=== PATIENT | female | born 1965 | race Caucasian/White ===

== ENCOUNTER 2022-12-04 16:47 | Emergency (ER) | payer OTHER ==
[2022-12-04 16:53] VITALS: TEMP 98.7
--- NOTE | 2022-12-04 17:14 | ED ---
General Adult HPI - General Chief complaint: Upper Respiratory Infection Stated complaint: Coughing Blood Time Seen by Provider: 12/04/22 17:00 Source: patient Mode of arrival: ambulatory Limitations: language barrier - History of Present Illness Initial comments: This is a 57-year-old female with a past medical history including atrial fibrillation and rheumatoid arthritis presents emergency department from urgent care for increasing soreness of breath, cough as well as blood-streaked sputum. It was reported that the patient was in [place] for 3 weeks but over the last 1 week started to experience symptoms including cough and chest tightness. The patient stated that she has had severe coughing episodes over the last 1 week and is now having blood-tinged sputum after these coughing episodes. The patient herself had congestion and subjective fevers without any chills. The patient was seen in urgent care and had a reported abnormal chest x-ray so she was sent into the emergency department for further evaluation. On evaluation, the patient was resting in bed comfortably. The patient denied any other acute pain or distress. - Related Data Home Medications Medication Instructions Recorded Confirmed Aspirin EC [Ecotrin Low Dose] 81 mg PO DAILY 12/04/22 12/04/22 Sotalol [Betapace] 80 mg PO BID 12/04/22 12/04/22 metHOTREXate sodium [Methotrexate] 12.5 mg PO MO 12/04/22 12/04/22 Previous Rx's Medication Instructions Recorded Azithromycin [Zithromax Z Pack] 1 tab PO DIRECTED #6 tab 12/04/22 Allergies Allergy/AdvReac Type Severity Reaction Status Date / Time No Known Allergies Allergy Verified 12/04/22 18:54 Review of Systems ROS Statement: Those systems with pertinent positive or pertinent negative responses have been documented in the HPI. ROS Other: All systems not noted in ROS Statement are negative. Past Medical History Past Medical History: Atrial Fibrillation, Rheumatoid Arthritis (RA) Additional Past Medical History / Comment(s): bronchiectasis History of Any Multi-Drug Resistant Organisms: None Reported Past Surgical History: Section Past Psychological History: No Psychological Hx Reported Smoking Status: Never smoker Past Alcohol Use History: Rare Past Drug Use History: None Reported General Exam Limitations: no limitations General appearance: alert, in no apparent distress Head exam: Present: atraumatic, normocephalic Eye exam: Present: normal appearance, PERRL Pupils: Present: normal accommodation ENT exam: Present: normal exam, normal oropharynx, mucous membranes moist Neck exam: Present: normal inspection, full ROM Respiratory exam: Present: normal lung sounds bilaterally Cardiovascular Exam: Present: regular rate, normal rhythm, normal heart sounds GI/Abdominal exam: Present: soft, normal bowel sounds Extremities exam: Present: normal inspection, full ROM Back exam: Present: normal inspection, full ROM Neurological exam: Present: alert, oriented X3, CN II-XII intact Psychiatric exam: Present: normal affect, normal mood Skin exam: Present: warm, dry Course Vital Signs 12/04/22 12/04/22 12/04/22 16:48 17:00 19:23 Temperature 98.7 F Pulse Rate 94 80 Respiratory 20 20 16 Rate Blood Pressure 145/88 124/82 O2 Sat by Pulse 93 L 98 Oximetry EKG Findings - EKG Comments: EKG Findings:: In EKG was obtained and was interpreted by myself showing a rate of 84, NV interval 135, QS duration of 82 and QTC of 414. This EKG showed a normal sinus rhythm with an occasional PVC. This EKG showed no ST segment elevation or depression noted. Medical Decision Making - Medical Decision Making Was pt. sent in by a medical professional or institution (, PA, GYMNASTICS INSTRUCTOR, urgent care, hospital, or jail...) When possible be specific @ -No Did you speak to anyone other than the patient for history (EMS, parent, family, police, friend...)? What history was obtained from this source @ -Yes, patient's daughter who did help with the leg which barrier. She stated that the patient has had increasing chest pressure with the cough. Did you review nursing and triage notes (agree or disagree)? Why? @ -I reviewed and agree with nursing and triage notes Were old charts reviewed (outside hosp., previous admission, EMS record, old EKG, old radiological studies, urgent care reports/EKG's, jail records)? Report findings @ -No old charts were reviewed Differential Diagnosis (chest pain, altered mental status, abdominal pain women, abdominal pain men, vaginal bleeding, weakness, fever, dyspnea, syncope, headache, dizziness, GI bleed, back pain, seizure, CVA, palpatations, mental health)? @ -Pneumonia, pneumothorax, PE EKG interpreted by me (3pts min.). @ -As above X-rays interpreted by me (1pt min.). @ -Chest x-ray was obtained and was interpreted by myself showing bilateral infrahilar infiltrates. CT interpreted by me (1pt min.). @ -CTA of the chest was obtained and was interpreted by myself showing no evidence for pulmonary embolus and. There was perihilar densities which may reflect atelectasis or developing infiltrate. There was additional reticular nodular densities in the right upper lobe that may reflect atypical pneumonia. Radiologist did recommend discrete pulmonary nodule follow-up in 3-6 months. U/S interpreted by me (1pt. min.). @ -None done What testing was considered but not performed or refused? (CT, X-rays, U/S, labs)? Why? @ -None What meds were considered but not given or refused? Why? @ -None Did you discuss the management of the patient with other professionals (professionals i.e. , PA, GYMNASTICS INSTRUCTOR, lab, RT, psych nurse, clinical social work therapist, reconciliation analyst, teacher, antisubmarine weapons officer, piano case maker)? Give summary @ -No Was smoking cessation discussed for >3mins.? @ -No Was critical care preformed (if so, how long)? @ -No Were there social determinants of health that impacted care today? How? (Homelessness, low income, unemployed, alcoholism, drug addiction, transportation, low edu. Level, literacy, decrease access to med. care, chcf, re hab)? @ -No Was there de-escalation of care discussed even if they declined (Discuss DNR or withdrawal of care, Hospice)? DNR status @ -No What co-morbidities impacted this encounter? (DM, HTN, Smoking, COPD, CAD, Cancer, CVA, ARF, Chemo, Hep., AIDS, mental health diagnosis, sleep apnea, morbid obesity)? @ -Atrial fibrillation Was patient admitted / discharged? Hospital course, mention meds given and route, prescriptions, significant lab abnormalities, going to OR and other pertinent info. @ -The patient was seen and evaluated emergency department. Physical exam, the patient was resting in bed without any acute distress. Vital signs admission were stable. Laboratory workup was obtained and was within normal limits but imaging did show signs for pneumonia. Due to the patient's coughing and likely blood-tinged sputum from forceful coughing, the patient will be treated for community acquired pneumonia. The patient was given a prescription for azithro mycin but was given a single dose of Decadron here in the emergency department. The patient and her daughter were advised report back to the emergency department if she had worsening shortness of breath or chest pain. They're also advised to follow-up with the primary care physician for further workup and evaluation. The patient was agreeable to this as was her daughter. The patient was discharged home in stable condition. Undiagnosed new problem with uncertain prognosis? @ -No Drug Therapy requiring intensive monitoring for toxicity (Heparin, Nitro, Insulin, Cardizem)? @ -No Were any procedures done? @ -No Diagnosis/symptom? @ -Community acquired pneumonia Acute, or Chronic, or Acute on Chronic? @ -Acute Uncomplicated (without systemic symptoms) or Complicated (systemic symptoms)? @ -Uncomplicated Side effects of treatment? @ -No Exacerbation, Progression, or Severe Exacerbation? @ -No Poses a threat to life or bodily function? How? (Chest pain, USA, VT, pneumonia, PE, COPD, DKA, ARF, appy, cholecystitis, CVA, Diverticulitis, Homicidal, Suicidal, threat to staff... and all critical care pts) @ -No - Lab Data Result diagrams: 12/04/22 17:18 12/04/22 17:18 Lab Results 12/04/22 12/04/22 12/04/22 Range/Units 17:18 17:18 17:18 WBC 7.6 (3.8-10.6) k/uL RBC 4.87 (3.80-5.40) m/uL Hgb 14.0 (11.4-16.0) gm/dL Hct 41.4 (34.0-46.0) % MCV 85.1 (80.0-100.0) fL MCH 28.7 (25.0-35.0) pg MCHC 33.8 (31.0-37.0) g/dL RDW 14.3 (11.5-15.5) % Plt Count 199 (150-450) k/uL MPV 8.3 Neutrophils % 69 % Lymphocytes % 23 % Monocytes % 5 % Eosinophils % 1 % Basophils % 0 % Neutrophils # 5.2 (1.3-7.7) k/uL Lymphocytes # 1.8 (1.0-4.8) k/uL Monocytes # 0.4 (0-1.0) k/uL Eosinophils # 0.1 (0-0.7) k/uL Basophils # 0.0 (0-0.2) k/uL PT 10.7 (9.0-12.0) sec INR 1.0 (<1.2) APTT 24.8 (22.0-30.0) sec D-Dimer 0.66 H (<0.60) mg/L FEU Sodium 137 (137-145) mmol/L Potassium 3.9 (3.5-5.1) mmol/L Chloride 99 (98-107) mmol/L Carbon Dioxide 28 (22-30) mmol/L Anion Gap 10 mmol/L BUN 10 (7-17) mg/dL Creatinine 0.74 (0.52-1.04) mg/dL Est GFR (CKD-EPI)AfAm >90 (>60 ml/min/1.73 sqM) Est GFR (CKD-EPI)NonAf >90 (>60 ml/min/1.73 sqM) Glucose 108 H (74-99) mg/dL Calcium 8.8 (8.4-10.2) mg/dL Magnesium 2.0 (1.6-2.3) mg/dL Total Bilirubin 0.4 (0.2-1.3) mg/dL AST 22 (14-36) U/L ALT 18 (4-34) U/L Alkaline Phosphatase 86 (38-126) U/L Troponin I (0.000-0.034) ng/mL Total Protein 7.8 (6.3-8.2) g/dL Albumin 4.3 (3.5-5.0) g/dL Lipase 42 (23-300) U/L Influenza Type A (PCR) (Not Detectd) Influenza Type B (PCR) (Not Detectd) RSV (PCR) (Not Detectd) SARS-CoV-2 (PCR) (Not Detectd) 12/04/22 12/04/22 Range/Units 17:18 17:18 WBC (3.8-10.6) k/uL RBC (3.80-5.40) m/uL Hgb (11.4-16.0) gm/dL Hct (34.0-46.0) % MCV (80.0-100.0) fL MCH (25.0-35.0) pg MCHC (31.0-37.0) g/dL RDW (11.5-15.5) % Plt Count (150-450) k/uL MPV Neutrophils % % Lymphocytes % % Monocytes % % Eosinophils % % Basophils % % Neutrophils # (1.3-7.7) k/uL Lymphocytes # (1.0-4.8) k/uL Monocytes # (0-1.0) k/uL Eosinophils # (0-0.7) k/uL Basophils # (0-0.2) k/uL PT (9.0-12.0) sec INR (<1.2) APTT (22.0-30.0) sec D-Dimer (<0.60) mg/L FEU Sodium (137-145) mmol/L Potassium (3.5-5.1) mmol/L Chloride (98-107) mmol/L Carbon Dioxide (22-30) mmol/L Anion Gap mmol/L BUN (7-17) mg/dL Creatinine (0.52-1.04) mg/dL Est GFR (CKD-EPI)AfAm (>60 ml/min/1.73 sqM) Est GFR (CKD-EPI)NonAf (>60 ml/min/1.73 sqM) Glucose (74-99) mg/dL Calcium (8.4-10.2) mg/dL Magnesium (1.6-2.3) mg/dL Total Bilirubin (0.2-1.3) mg/dL AST (14-36) U/L ALT (4-34) U/L Alkaline Phosphatase (38-126) U/L Troponin I <0.012 (0.000-0.034) ng/mL Total Protein (6.3-8.2) g/dL Albumin (3.5-5.0) g/dL Lipase (23-300) U/L Influenza Type A (PCR) Not Detected (Not Detectd) Influenza Type B (PCR) Not Detected (Not Detectd) RSV (PCR) Not Detected (Not Detectd) SARS-CoV-2 (PCR) Not Detected (Not Detectd) Disposition Clinical Impression: CAP (community acquired pneumonia) Disposition: HOME SELF-CARE Condition: Stable Instructions (If sedation given, give patient instructions): Community Acquired Pneumonia (DC) Prescriptions: Azithromycin [Zithromax Z Pack] 1 tab PO DIRECTED #6 tab Is patient prescribed a controlled substance at d/c from ED?: No Referrals: Nonstaff,Physician [REFERRING] - 1-2 days Time of Disposition: 19:00
[2022-12-04 17:31] LABS: Basophils % (A) 0 %; Eosinophils # (A) 0.1 k/uL (0-0.7); Eosinophils % (A) 1 %; HCT 41.4 % (34.0-46.0); Lymphocytes # (A) 1.8 k/uL (1.0-4.8); Lymphocytes % (A) 23 %; MCH 28.7 pg (25.0-35.0); MCHC 33.8 g/dL (31.0-37.0); MCV 85.1 fL (80.0-100.0); Mean Platelet Volume 8.3; Monocytes # (A) 0.4 k/uL (0-1.0); Monocytes % (A) 5 %; Neutrophils # (A) 5.2 k/uL (1.3-7.7); Neutrophils % (A) 69 %; Platelet Count 199 k/uL (150-450); RBC 4.87 m/uL (3.80-5.40); RDW 14.3 % (11.5-15.5); WBC 7.6 k/uL (3.8-10.6)
--- NOTE | 2022-12-04 17:48 | XR ---
EXAMINATION TYPE: XR chest 2V DATE OF EXAM: 12/04/2022 COMPARISON: NONE HISTORY: Shortness of breath TECHNIQUE: Frontal and lateral views of the chest are obtained. FINDINGS: Scattered senescent parenchymal changes noted. Hyperinflation compatible with COPD. Bilateral infrahilar infiltrates. Correlate for pneumonia. Heart size is stable. Mediastinal structures are stable and grossly unremarkable. No evidence for hilar prominence. Degenerative changes dorsal spine. IMPRESSION: 1. Bilateral infrahilar infiltrates. Correlate for pneumonia.
[2022-12-04 17:49] LABS: Partial Thromboplastin Time 24.8 sec (22.0-30.0); Prothrombin Time 10.7 sec (9.0-12.0)
[2022-12-04 17:56] LABS: ALT 18 U/L (4-34); AST 22 U/L (14-36); African American GFR (CKD) >90 (>60 ml/min/1.73 sqM); Albumin 4.3 g/dL (3.5-5.0); Alkaline Phosphatase 86 U/L (38-126); Anion Gap 10 mmol/L; Blood Urea Nitrogen 10 mg/dL (7-17); Calcium 8.8 mg/dL (8.4-10.2); Carbon Dioxide 28 mmol/L (22-30); Chloride 99 mmol/L (98-107); Glucose 108 mg/dL (74-99); Lipase 42 U/L (23-300); Non-African American GFR(CKD) >90 (>60 ml/min/1.73 sqM); Potassium 3.9 mmol/L (3.5-5.1); Sodium 137 mmol/L (137-145); Total Bilirubin 0.4 mg/dL (0.2-1.3); Total Protein 7.8 g/dL (6.3-8.2)
--- NOTE | 2022-12-04 19:05 | CT ---
The axilla EXAMINATION TYPE: CT angio chest DATE OF EXAM: 12/04/2022 COMPARISON: None HISTORY: dyspnea CT DLP: 281.9 mGycm CONTRAST: CT chest with contrast and 3D reconstruction with MIP imaging is performed with IV Contrast, patient injected with 100ml mL of Isovue 370. Contrast-enhanced CT of the chest was performed through the course of the pulmonary arteries with coretta g and mediastinal window settings submitted. 3D reconstruction with MIP imaging was also performed. PULMONARY ARTERIES: The pulmonary arteries and their major tributaries are patent. I do not see noris dence for sizable filling defect to suggest pulmonary embolic process. LUNGS: 7 mm pulmonary nodule lateral right mid lung zone image 83 sequence 406. Appropriate follow-up advised. Atelectatic changes are within the medial upper lobes bilaterally. Mild lower lobe bronchie ctasis. Some scattered reticulonodular densities right upper lobe may reflect atypical pneumonia. MEDIASTINUM: Thoracic aorta is of normal caliber,however, evaluation is limited given timing of the contrast bolus. If there is concern for thoracic aortic pathology consider RONDA. Correlate clinicall y . The heart is not enlarged. No evidence for mediastinal mass. No mediastinal lymph nodes greater than 1cm. HILAR STRUCTURES: No evidence for mass. No hilar lymph nodes greater than 1 cm. UPPER ABDOMEN: No significant abnormality is seen. IMPRESSION: 1. No evidence for Pulmonary embolism at this time. 2. Perihilar densities which may reflect atelectasis or developing infiltrate. Additional reticulonod ular densities right upper lobe may reflect atypical pneumonia. More discrete pulmonary nodule requir es follow-up in 3-6 months.
[2022-12-04] MEDS ORDERED: dexAMETHasone 2 MG TAB PO STA (19:19)
[2022-12-04 19:24] VITALS: BP 124/82; PULSE 80; RESP 16
== END 2022-12-04 19:33 | disposition home or self-care (01) ==
LOC: EC 16:47
DX: J18.9 Pneumonia, unspecified organism (principal); I48.91 Unspecified atrial fibrillation; Z79.82 Long term (current) use of aspirin; Z20.822 Contact with and (suspected) exposure to COVID-19
CPT/HCPCS: 36415; 93005; 85379; 80053; 83690; 83735; 84484; 85025; 85610; 85730; 87636; 71046; 71275; 99284; J8540; Q9967

== ENCOUNTER 2024-07-19 23:11 | Observation (INO) | payer OTHER ==
[2024-07-20 00:13] LABS: Basophils % (A) 1 %; Eosinophils # (A) 0.3 k/uL (0-0.7); Eosinophils % (A) 4 %; HGB 13.3 gm/dL (11.4-16.0); Lymphocytes # (A) 1.9 k/uL (1.0-4.8); Lymphocytes % (A) 26 %; MCH 28.4 pg (25.0-35.0); MCHC 32.5 g/dL (31.0-37.0); MCV 87.5 fL (80.0-100.0); Mean Platelet Volume 8.3; Monocytes # (A) 0.5 k/uL (0-1.0); Monocytes % (A) 7 %; Neutrophils # (A) 4.7 k/uL (1.3-7.7); Neutrophils % (A) 62 %; Platelet Count 216 k/uL (150-450); RBC 4.68 m/uL (3.80-5.40); RDW 12.9 % (11.5-15.5); WBC 7.5 k/uL (3.8-10.6)
[2024-07-20 00:20] LABS: ALT 41 U/L (4-34); AST 34 U/L (14-36); African American GFR (CKD) 84 (>60 ml/min/1.73 sqM); Albumin 4.5 g/dL (3.5-5.0); Alkaline Phosphatase 115 U/L (38-126); Anion Gap 6 mmol/L; Blood Urea Nitrogen 22 mg/dL (7-17); Calcium 9.2 mg/dL (8.4-10.2); Carbon Dioxide 26 mmol/L (22-30); Chloride 108 mmol/L (98-107); Glucose 118 mg/dL (74-99); Non-African American GFR(CKD) 73 (>60 ml/min/1.73 sqM); Potassium 4.1 mmol/L (3.5-5.1); Sodium 140 mmol/L (137-145); Total Bilirubin 0.3 mg/dL (0.2-1.3)
[2024-07-20 00:30] LABS: INR 0.9 (<1.2); Partial Thromboplastin Time 24.9 sec (22.0-30.0); Prothrombin Time 10.2 sec (10.0-12.5)
[2024-07-20] MEDS: TRANEXAMIC ACID 1,000 MG/10 ML VIAL MISCELLANE ONE (02:25)
--- NOTE | 2024-07-20 02:43 | XR ---
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 Hx of Hemoptysis, Afib, Bronchiectasis TECHNIQUE: Frontal and lateral views of the chest. COMPARISON: XR Chest dated 11/14/2022 FINDINGS: Lungs: Bilateral medial lower lung opacities somewhat similar/mildly increased. Pleural space: Unremarkable. No pneumothorax. Heart: Unremarkable. No cardiomegaly. Mediastinum: Unremarkable. Normal mediastinal contour. Bones/joints: Unremarkable. No acute fracture. IMPRESSION: Bilateral medial lower lung opacities somewhat similar/mildly increased. Broad differential diagnosis including atelectasis, infectious/inflammatory/neoplastic process.
--- NOTE | 2024-07-20 03:03 | CT ---
EXAM: CT Angiography Chest With Intravenous Contrast CLINICAL HISTORY: ITS.REASON CT Reason: [facility] tech : Coughing bright red blood, denies pain. Hx of Hemoptysis, Afib, Bronchiectasis d-dimer 0.66 TECHNIQUE: Axial computed tomographic angiography images of the chest with intravenous contrast. CTDI is 8.3 mGy and DLP is 238 mGy-cm. This CT exam was performed using one or more of the following dose reduction techniques: automated exposure control, adjustment of the mA and/or kV according to patient size, and/or use of iterative reconstruction technique. MIP reconstructed images were created and reviewed. COMPARISON: CTA Chest dated 12/04/22 FINDINGS: Pulmonary arteries: Unremarkable. No pulmonary embolism. Aorta: No acute findings. No thoracic aortic aneurysm. Lungs: Right middle lobe and lingular atelectasis, similar/mildly increased. Few opacified small airways in the right upper lobe/mucus plugging. Small areas of tree-in-bud/nodular densities in the upper lobes bilaterally. 7 mm right pulmonary nodule on the prior not clearly delineated. Pleural space: Unremarkable. No significant effusion. No pneumothorax. Heart: Unremarkable. No cardiomegaly. No significant pericardial effusion. No evidence of RV dysfunction. Bones/joints: No acute fracture. No dislocation. Soft tissues: Unremarkable. Lymph nodes: Small bilateral hilar nodes, 7-8 mm nodes. Nonspecific. IMPRESSION: 1. No pulmonary embolism. 2. Right middle lobe and lingular atelectasis, similar/mildly increased. 3. Few opacified small airways in the right upper lobe/mucus plugging. 4. Small areas of tree-in-bud/nodular densities in the upper lobes bilaterally. May represent infectious/inflammatory process. 5. 7 mm right pulmonary nodule on the prior not clearly delineated.
[2024-07-20] MEDS ORDERED: NALOXONE 0.4 MG/ML 1 ML VIAL IV PRN (03:50)
--- NOTE | 2024-07-20 03:50 | ED ---
URI HPI - General Chief Complaint: Upper Respiratory Infection Stated Complaint: Coughing Blood Time Seen by Provider: 07/19/24 23:15 Source: patient Mode of arrival: ambulatory Limitations: language barrier - History of Present Illness Initial Comments: 58-year-old female with past medical history of rheumatoid arthritis, bronchiectasis who presents emergency department with hemoptysis. Patient states that she has chronic hemoptysis however over the past week her symptoms have become more pronounced. Yesterday she began having significant blood. She follows with a java tech in a different hospital system. Has a diagnosis of bronchiectasis. Currently does not take any medications for the symptom. She does not take any blood thinners. She denies fevers or chills. No chest pain. No history of coronary disease. Does have some shortness of breath. No other alleviating, precipitating modifying factors - Related Data Home Medications Medication Instructions Recorded Confirmed Sotalol [Betapace] 80 mg PO BID 12/04/22 07/20/24 Previous Rx's Medication Instructions Recorded Levofloxacin [Levaquin] 750 mg PO DAILY 6 Days #6 tab 07/21/24 methylPREDNISolone [Medrol Dose 0 mg PO DIRECTED #1 packet 07/21/24 Pack] Allergies Allergy/AdvReac Type Severity Reaction Status Date / Time metamizole Allergy Swelling Uncoded 07/20/24 09:44 Review of Systems ROS Statement: Those systems with pertinent positive or pertinent negative responses have been documented in the HPI. ROS Other: All systems not noted in ROS Statement are negative. Past Medical History Past Medical History: Atrial Fibrillation, Rheumatoid Arthritis (RA) Additional Past Medical History / Comment(s): bronchiectasis History of Any Multi-Drug Resistant Organisms: None Reported Past Surgical History: Section Past Psychological History: No Psychological Hx Reported Smoking Status: Never smoker Past Alcohol Use History: Rare Past Drug Use History: None Reported General Exam Limitations: language barrier General appearance: alert, in no apparent distress Head exam: Present: atraumatic, normocephalic, normal inspection Eye exam: Present: normal appearance, PERRL, EOMI. Absent: scleral icterus, conjunctival injection, periorbital swelling ENT exam: Present: normal exam, mucous membranes moist Neck exam: Present: normal inspection. Absent: tenderness, meningismus, lymphadenopathy Respiratory exam: Present: normal lung sounds bilaterally. Absent: respiratory distress, wheezes, rales, rhonchi, stridor Cardiovascular Exam: Present: regular rate, normal rhythm, normal heart sounds. Absent: systolic murmur, diastolic murmur, rubs, gallop, clicks GI/Abdominal exam: Present: soft, normal bowel sounds. Absent: distended, tenderness, guarding, rebound, rigid Extremities exam: Present: normal inspection, full ROM, normal capillary refill. Absent: tenderness, pedal edema, joint swelling, calf tenderness Back exam: Present: normal inspection Neurological exam: Present: alert, oriented X3, CN II-XII intact Psychiatric exam: Present: normal affect, normal mood Skin exam: Present: warm, dry, intact, normal color. Absent: rash Course Vital Signs 07/19/24 07/20/24 07/20/24 23:14 02:28 03:00 Temperature 98.4 F Pulse Rate 93 70 65 Respiratory 18 Rate Blood Pressure 155/84 O2 Sat by Pulse 97 Oximetry 07/20/24 04:40 Temperature Pulse Rate 68 Respiratory 16 Rate Blood Pressure 103/58 O2 Sat by Pulse 96 Oximetry Medical Decision Making - Medical Decision Making Was pt. sent in by a medical professional or institution (, PA, ELECTRICAL AUTOMATION ENGINEER, urgent care, hospital, or alf...) When possible be specific @ -No Did you speak to anyone other than the patient for history (EMS, parent, family, police, friend...)? What history was obtained from this source @ -Spoke with the daughter for history Did you review nursing and triage notes (agree or disagree)? Why? @ -I reviewed and agree with nursing and triage notes Were old charts reviewed (outside hosp., previous admission, EMS record, old EKG, old radiological studies, urgent care reports/EKG's, alf records)? Report findings @ -No old charts were reviewed Differential Diagnosis (chest pain, altered mental status, abdominal pain women, abdominal pain men, vaginal bleeding, weakness, fever, dyspnea, syncope, headache, dizziness, GI bleed, back pain, seizure, CVA, palpatations, mental health, musculoskeletal)? @ -Differential Dyspnea: Coronary syndrome, arrhythmia, tamponade, asthma, COPD, pulmonary embolism, pneumonia, pneumothorax, pulmonary effusion, anaphylaxis, diabetic ketoacidosis, flailed chest, pulmonary contusion, diaphragmatic rupture, anemia, neuromuscular, this is not meant to be an all-inclusive list. EKG interpreted by me (3pts min.). @ -Yes and demonstrates sinus rhythm with a rate of 68. WA interval 161. QRS 86. QTc of 417. No acute ST segment elevations or depressions X-rays interpreted by me (1pt min.). @ -None done CT interpreted by me (1pt min.). @Yes which demonstrates no PE U/S interpreted by me (1pt. min.). @ -None done What testing was considered but not performed or refused? (CT, X-rays, U/S, labs)? Why? @ -None What meds were considered but not given or refused? Why? @ -None Did you discuss the management of the patient with other professionals (professionals i.e. , PA, ELECTRICAL AUTOMATION ENGINEER, lab, RT, psych nurse, social sciences instructor, parking lot manager, teacher, head correction officer, business case analyst)? Give summary @ -Spoke with Dr. Conde who will admit the patient Was smoking cessation discussed for >3mins.? @ -No Was critical care preformed (if so, how long)? @ -No Were there social determinants of health that impacted care today? How? (Homelessness, low income, unemployed, alcoholism, drug addiction, transpo rtation, low edu. Level, literacy, decrease access to med. care, senior care, rehab)? @ -No Was there de-escalation of care discussed even if they declined (Discuss DNR or withdrawal of care, Hospice)? DNR status @ -No What co-morbidities impacted this encounter? (DM, HTN, Smoking, COPD, CAD, Cancer, CVA, ARF, Chemo, Hep., AIDS, mental health diagnosis, sleep apnea, morbid obesity)? @ -Bronchiectasis, rheumatoid arthritis Was patient admitted / discharged? Hospital course, mention meds given and rou te, prescriptions, significant lab abnormalities, going to OR and other pertinent info. @ -Upon arrival patient seen and evaluated in room 20. Thorough history and physical exam was performed. IV access with established. Laboratory studies were conducted. Patient goes for CT as D-dimer is positive. CT demonstrates no PE. She is given a TXA breathing treatment. Patient will be admitted for further monitoring as she does have significant hemoptysis. Pulmonology was placed on consult. Spoke with Dr. Conde for the admission Undiagnosed new problem with uncertain prognosis? @ -No Drug Therapy requiring intensive monitoring for toxicity (Heparin, Nitro, Insulin, Cardizem)? @ -No Were any procedures done? @ -No Diagnosis/symptom? @ -Acute hemoptysis, history of bronchiectasis Acute, or Chronic, or Acute on Chronic? @ -Acute on chronic Uncomplicated (without systemic symptoms) or Complicated (systemic symptoms)? @ -Complicated Side effects of treatment? @ -No Exacerbation, Progression, or Severe Exacerbation? @ -Yes Poses a threat to life or bodily function? How? (Chest pain, [place], [place], pneumonia, PE, COPD, DKA, ARF, appy, cholecystitis, CVA, Diverticulitis, Homicidal, Suici maribel, threat to staff... and all critical care pts) @ -Yes as patient has significant hemoptysis - Lab Data Result diagrams: 07/21/24 06:33 07/21/24 06:33 Lab Results 07/20/24 07/20/24 07/20/24 Range/Units 00:00 00:00 00:00 WBC 7.5 (3.8-10.6) k/uL RBC 4.68 (3.80-5.40) m/uL Hgb 13.3 (11.4-16.0) gm/dL Hct 41.0 (34.0-46.0) % MCV 87.5 (80.0-100.0) fL MCH 28.4 (25.0-35.0) pg MCHC 32.5 (31.0-37.0) g/dL RDW 12.9 (11.5-15.5) % Plt Count 216 (150-450) k/uL MPV 8.3 Neutrophils % 62 % Lymphocytes % 26 % Monocytes % 7 % Eosinophils % 4 % Basophils % 1 % Neutrophils # 4.7 (1.3-7.7) k/uL Lymphocytes # 1.9 (1.0-4.8) k/uL Monocytes # 0.5 (0-1.0) k/uL Eosinophils # 0.3 (0-0.7) k/uL Basophils # 0.0 (0-0.2) k/uL PT 10.2 (10.0-12.5) sec INR 0.9 (<1.2) APTT 24.9 (22.0-30.0) sec D-Dimer 0.66 H (<0.60) mg/L FEU Sodium 140 (137-145) mmol/L Potassium 4.1 (3.5-5.1) mmol/L Chloride 108 H (98-107) mmol/L Carbon Dioxide 26 (22-30) mmol/L Anion Gap 6 mmol/L BUN 22 H (7-17) mg/dL Creatinine 0.88 (0.52-1.04) mg/dL Est GFR (CKD-EPI)AfAm 84 (>60 ml/min/1.73 sqM) Est GFR (CKD-EPI)NonAf 73 (>60 ml/min/1.73 sqM) Glucose 118 H (74-99) mg/dL Plasma Lactic Acid Yan (0.7-2.0) mmol/L Calcium 9.2 (8.4-10.2) mg/dL Total Bilirubin 0.3 (0.2-1.3) mg/dL AST 34 (14-36) U/L ALT 41 H (4-34) U/L Alkaline Phosphatase 115 (38-126) U/L Troponin I (0.000-0.034) ng/mL Total Protein 8.0 (6.3-8.2) g/dL Albumin 4.5 (3.5-5.0) g/dL Procalcitonin (0.02-0.50) ng/mL Influenza Type A (PCR) (Not Detectd) Influenza Type B (PCR) (Not Detectd) RSV (PCR) (Not Detectd) SARS-CoV-2 (PCR) (Not Detectd) 07/20/24 07/20/24 07/20/24 Range/Units 00:00 00:00 00:00 WBC (3.8-10.6) k/uL RBC (3.80-5.40) m/uL Hgb (11.4-16.0) gm/dL Hct (34.0-46.0) % MCV (80.0-100.0) fL MCH (25.0-35.0) pg MCHC (31.0-37.0) g/dL RDW (11.5-15.5) % Plt Count (150-450) k/uL MPV Neutrophils % % Lymphocytes % % Monocytes % % Eosinophils % % Basophils % % Neutrophils # (1.3-7.7) k/uL Lymphocytes # (1.0-4.8) k/uL Monocytes # (0-1.0) k/uL Eosinophils # (0-0.7) k/uL Basophils # (0-0.2) k/uL PT (10.0-12.5) sec INR (<1.2) APTT (22.0-30.0) sec D-Dimer (<0.60) mg/L FEU Sodium (137-145) mmol/L Potassium (3.5-5.1) mmol/L Chloride (98-107) mmol/L Carbon Dioxide (22-30) mmol/L Anion Gap mmol/L BUN (7-17) mg/dL Creatinine (0.52-1.04) mg/dL Est GFR (CKD-EPI)AfAm (>60 ml/min/1.73 sqM) Est GFR (CKD-EPI)NonAf (>60 ml/min/1.73 sqM) Glucose (74-99) mg/dL Plasma Lactic Acid Ayn 0.6 L (0.7-2.0) mmol/L Calcium (8.4-10.2) mg/dL Total Bilirubin (0.2-1.3) mg/dL AST (14-36) U/L ALT (4-34) U/L Alkaline Phosphatase (38-126) U/L Troponin I <0.012 (0.000-0.034) ng/mL Total Protein (6.3-8.2) g/dL Albumin (3.5-5.0) g/dL Procalcitonin (0.02-0.50) ng/mL Influenza Type A (PCR) Not Detected (Not Detectd) Influenza Type B (PCR) Not Detected (Not Detectd) RSV (PCR) Not Detected (Not Detectd) SARS-CoV-2 (PCR) Not Detected (Not Detectd) 07/20/24 Range/Units 00:00 WBC (3.8-10.6) k/uL RBC (3.80-5.40) m/uL Hgb (11.4-16.0) gm/dL Hct (34.0-46.0) % MCV (80.0-100.0) fL MCH (25.0-35.0) pg MCHC (31.0-37.0) g/dL RDW (11.5-15.5) % Plt Count (150-450) k/uL MPV Neutrophils % % Lymphocytes % % Monocytes % % Eosinophils % % Basophils % % Neutrophils # (1.3-7.7) k/uL Lymphocytes # (1.0-4.8) k/uL Monocytes # (0-1.0) k/uL Eosinophils # (0-0.7) k/uL Basophils # (0-0.2) k/uL PT (10.0-12.5) sec INR (<1.2) APTT (22.0-30.0) sec D-Dimer (<0.60) mg/L FEU Sodium (137-145) mmol/L Potassium (3.5-5.1) mmol/L Chloride (98-107) mmol/L Carbon Dioxide (22-30) mmol/L Anion Gap mmol/L BUN (7-17) mg/dL Creatinine (0.52-1.04) mg/dL Est GFR (CKD-EPI)AfAm (>60 ml/min/1.73 sqM) Est GFR (CKD-EPI)NonAf (>60 ml/min/1.73 sqM) Glucose (74-99) mg/dL Plasma Lactic Acid Yan (0.7-2.0) mmol/L Calcium (8.4-10.2) mg/dL Total Bilirubin (0.2-1.3) mg/dL AST (14-36) U/L ALT (4-34) U/L Alkaline Phosphatase (38-126) U/L Troponin I (0.000-0.034) ng/mL Total Protein (6.3-8.2) g/dL Albumin (3.5-5.0) g/dL Procalcitonin <0.02 (0.02-0.50) ng/mL Influenza Type A (PCR) (Not Detectd) Influenza Type B (PCR) (Not Detectd) RSV (PCR) (Not Detectd) SARS-CoV-2 (PCR) (Not Detectd) Disposition Clinical Impression: Hemoptysis, Bronchiectasis Disposition: ADMITTED IP TO THIS [facility] Condition: Stable Is patient prescribed a controlled substance at d/c from ED?: No Time of Disposition: 03:50 Decision to Admit Reason: Admit from EC Decision Date: 07/20/24 Decision Time: 03:50
--- NOTE | 2024-07-20 04:49 | P.HPIM ---
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 Patient reports that over the past several days, she has been noticing small amounts of daily hemoptysis but that is acutely worsened today where she had a whole cupful amount of hector hemoptysis. She denies any additional complaints. Denied experiencing chest discomfort, fever, chills, nausea, vomiting, abdominal pain, diarrhea. Reports that she normally has small amounts of hemoptysis a few times a year but never to this extent. In the emergency room a chest CTA revealed small areas of tree-in-bud nodular densities in the upper lobes with no evidence of pulmonary embolism along with right middle lobe atelectasis. Laboratory evaluation was remarkable for WBC count 7.5, hemoglobin 13.3, D-dimer 0.66, chloride 108, BUN 23, creatinine 0.88, lactic acid 0.6, with troponin less than 0.012 with respiratory viral panel negative. ED documentation reviewed and case discussed with ED provider. Review of systems: Pertinent positives and negatives as discussed in HPI, a complete review of systems was performed and all other systems are negative. Physical examination: Vital signs reviewed General: non toxic, no distress, appears at stated age, overweight Derm: no unusual rashes/lesions, warm Head: atraumatic, normocephalic, symmetric Eyes: EOMI, no lid lag, anicteric sclera, pupils equal round reactive to light ENT: Nose and ears atraumatic Neck: No cervical lymphadenopathy, trachea midline, supple Mouth: no lip lesion, mucus membranes moist Cardiovascular: S1S2 reg, no murmur, positive dorsalis pedis pulse bilateral, no edema Lungs: CTA bilateral, no rhonchi, no rales, no accessory muscle use Abdominal: soft, nontender to palpation, no guarding Ext: muscle strength 5 out of 5 in all 4 extremities grossly, no gross muscle atrophy, no contractures, Neuro: CN II-XI grossly intact, no gross focal neuro deficits Psych: Alert, oriented, appropriate affect Assessment: Hector hemoptysis in setting of bronchiectasis Chronic conditions: Rheumatoid arthritis Imaging: In the emergency room a chest CTA revealed small areas of tree-in-bud nodular densities in the upper lobes with no evidence of pulmonary embolism along with right middle lobe atelectasis. Data Review: Laboratory evaluation was remarkable for WBC count 7.5, hemoglobin 13.3, D-dimer 0.66, chloride 108, BUN 23, creatinine 0.88, lactic acid 0.6, with troponin less than 0.012 with respiratory viral panel negative. Plan: Pulmonary consulted Initiate patient on empiric abxs with Levaquin Status post tranexamic acid inhaled in the emergency room DVT prophylaxis: IPCDs The patient is admitted with an anticipated greater than 2 midnight stay for evaluation of hemoptysis CODE STATUS: Full Code Discussed with: Patient Anticipated discharge place: Home Past Medical History Past Medical History: Atrial Fibrillation, Rheumatoid Arthritis (RA) Additional Past Medical History / Comment(s): bronchiectasis History of Any Multi-Drug Resistant Organisms: None Reported Past Surgical History: Section Past Psychological History: No Psychological Hx Reported Smoking Status: Never smoker Past Alcohol Use History: Rare Past Drug Use History: None Reported Medications and Allergies Home Medications Medication Instructions Recorded Confirmed Type Aspirin EC [Ecotrin Low Dose] 81 mg PO DAILY 12/04/22 12/04/22 History Azithromycin [Zithromax Z Pack] 1 tab PO DIRECTED #6 tab 12/04/22 Rx Sotalol [Betapace] 80 mg PO BID 12/04/22 12/04/22 History metHOTREXate sodium [Methotrexate] 12.5 mg PO MO 12/04/22 12/04/22 History Allergies Allergy/AdvReac Type Severity Reaction Status Date / Time No Known Allergies Allergy Verified 12/04/22 18:54 Physical Exam Vitals: Vital Signs Temp Pulse Resp BP Pulse Ox 07/20/24 03:00 65 07/20/24 02:28 70 07/19/24 23:14 98.4 F 93 18 155/84 97 Intake and Output 07/19/24 07/19/24 07/20/24 14:59 22:59 06:59 Other: Weight 74.843 kg Results CBC & Chem 7: 07/20/24 00:00 07/20/24 00:00 Labs: Abnormal Lab Results - Last 24 Hours (Table) 07/20/24 07/20/24 07/20/24 Range/Units 00:00 00:00 00:00 D-Dimer 0.66 H (<0.60) mg/L FEU Chloride 108 H (98-107) mmol/L BUN 22 H (7-17) mg/dL Glucose 118 H (74-99) mg/dL Plasma Lactic Acid Yan 0.6 L (0.7-2.0) mmol/L ALT 41 H (4-34) U/L
[2024-07-20] MEDS: LEVOFLOXACIN 750MG-D5W PMX 750 MG in DEXTROSE/WATER 1 150ML.BAG IVPB SCH (05:52)
[2024-07-20] MEDS: SOTALOL 80 MG TAB PO SCH (09:50)
--- NOTE | 2024-07-20 14:23 | P.CNPUL ---
History of Present Illness Consult date: 07/20/24 Requesting physician: Rosita Conde Reason for consult: abnormal CXR/CT Chief complaint: Hemoptysis History of present illness: This is a pleasant 58-year-old Persian woman who has a history of atrial fibrillation currently on Betapace, rheumatoid arthritis maintained on Leflunomide diagnosed approximately 3 years ago. She had previously been on methotrexate. She also has a history of bronchiectasis diagnosed approximately 15 years ago while in [facility]. She has been here in the [facility] and living with her daughter. She does follow-up with a associate field service engineer in the [facility]. She has had bronchoscopy x 3. She was last on antibiotics in December 2023. She presented here to our emergency room early this morning with coughing up a clot then bright red blood approximately 2 tablespoons. She did receive tranexamic acid in the emergency department. She was initiated on Levaquin. Chest x-ray reveals bilateral medial lower lung opacities. CT angiogram ruled out pulmonary embolism. There is right middle lobe and lingular atelectasis/bronchiectasis. Small similar areas of tree-in-bud/nodular densities in the upper lobes bilaterally more so in the upper right lung. She is currently sitting up in bed. Awake and alert in no acute distress. Maintaining good O2 saturations in the 90s on room air. She has not had any further hemoptysis. White count 7.5. Hemoglobin 13.3. Platelets 216. D-dimer 0.66. INR 0.9. Sodium 140. Potassium 4.1. Bicarb 26. BUN 22. Creatinine 0.88. Glucose 118. Viral screen negative. She remains afebrile. Hemodynamically stable. Review of Systems REVIEW OF SYSTEMS: CONSTITUTIONAL: Denies any recent significant weight loss or weight gain. EYES: Denies change in vision. EARS, NOSE, MOUTH, THROAT: Denies headaches, denies sore throat. CARDIOVASCULAR: Denies chest pain, palpitations or syncopal episodes. RESPIRATORY: Positive for hemoptysis. GASTROINTESTINAL: Denies change in appetite, denies abdominal pain GENITOURINARY: Denies hematuria, denies infections. MUSKULOSKELETAL: Denies pain, denies swelling. INTEGUMENTARY: Denies rash, denies eczema. NEUROLOGICAL: Denies recent memory loss, no recent seizure activity. PSYCHIATRIC: Denies anxiety, denies depression. HEMATOLOGIC/LYMPHATIC: Denies anemia, denies enlarged lymph nodes. Past Medical History Past Medical History: Atrial Fibrillation, Rheumatoid Arthritis (RA) Additional Past Medical History / Comment(s): bronchiectasis History of Any Multi-Drug Resistant Organisms: None Reported Past Surgical History: Section Past Psychological History: No Psychological Hx Reported Smoking Status: Never smoker Past Alcohol Use History: Rare Past Drug Use History: None Reported Medications and Allergies Home Medications Medication Instructions Recorded Confirmed Type Aspirin EC [Ecotrin Low Dose] 81 mg PO W/LUNCH 12/04/22 07/20/24 History Sotalol [Betapace] 80 mg PO BID 12/04/22 07/20/24 History Leflunomide 10 mg PO HS 07/20/24 07/20/24 History Allergies Allergy/AdvReac Type Severity Reaction Status Date / Time metamizole Allergy Swelling Uncoded 07/20/24 09:44 Physical Exam Vitals: Vital Signs Temp Pulse Pulse Resp BP BP Pulse Ox 07/20/24 08:00 16 07/20/24 07:00 97.4 F L 72 16 107/73 97 07/20/24 04:40 68 16 103/58 96 07/20/24 03:00 65 07/20/24 02:28 70 07/19/24 23:14 98.4 F 93 18 155/84 97 Intake and Output 07/19/24 07/20/24 07/20/24 22:59 06:59 14:59 Other: Voiding Method Toilet Weight 74.843 kg 74.843 kg GENERAL EXAM: Alert, 58-year-old female, on room air, comfortable in no apparent distress. HEAD: Normocephalic. EYES: Normal reaction of pupils, equal size. NOSE: Clear with pink turbinates. THROAT: No erythema or exudates. NECK: No masses, no JVD. CHEST: No chest wall deformity. LUNGS: Equal air entry with no crackles, wheeze, rhonchi or dullness. CVS: S1 and S2 normal with no audible murmur, regular rhythm. ABDOMEN: No hepatosplenomegaly, normal bowel sounds, no guarding or rigidity. SPINE: No scoliosis or deformity SKIN: No rashes CENTRAL NERVOUS SYSTEM: No focal deficits, tone is normal in all 4 extremities. EXTREMITIES: There is no peripheral edema. No clubbing, no cyanosis. Peripheral pulses are intact. Results - Laboratory Findings CBC and BMP: 07/20/24 00:00 07/20/24 00:00 PT/INR, D-dimer PT 10.2 sec (10.0-12.5) 07/20/24 00:00 INR 0.9 (<1.2) 07/20/24 00:00 D-Dimer 0.66 mg/L FEU (<0.60) H 07/20/24 00:00 Abnormal lab findings: Abnormal Labs 07/20/24 07/20/24 07/20/24 00:00 00:00 00:00 D-Dimer 0.66 H Chloride 108 H BUN 22 H Glucose 118 H Plasma Lactic Acid Yan 0.6 L ALT 41 H - Diagnostic Findings Chest x-ray: image reviewed CT scan - chest: image reviewed Assessment and Plan Assessment: Hemoptysis requiring tranexamic acid in the emergency department suspect secondary to bronchiectasis. Currently on Levaquin History of bronchiectasis for approximately 15 years with previous bronchoscopy x 3 in [facility]. Last antibiotics in December 2023 Rheumatoid arthritis for approximately 3 years, initially on methotrexate, curr ently on leflunomide History of atrial fibrillation, on Betapace, no anticoagulants Plan: The patient was seen and evaluated Imaging, labs and medications reviewed Did receive tranexamic acid in the ER No further hemoptysis thus far Currently stable and on room air Recommending bronchoscopy Anton We will continue to follow and make further recommendations based on her clinical status I have personally seen and examined the patient, performed the documentation and the assessment and plan as written. Number of minutes spent on the visit: 20 Dictation was produced using [employer] dictation software. Please excuse any grammatical, word or spelling errors.
[2024-07-20] MEDS ORDERED: LEFLUNOMIDE 20 MG TAB PO SCH (21:00)
[2024-07-21 06:27] VITALS: TEMP 97.6
[2024-07-21 08:40] VITALS: RESP 18
[2024-07-21 10:45] LABS: Basophils # (A) 0.05 X 10*3/uL (0.00-0.10); Basophils % (A) 0.9 %; Eosinophils % (A) 3.5 %; HCT 41.9 % (37.2-46.3); HGB 13.5 g/dL (12.0-15.0); Lymphocytes # (A) 2.62 X 10*3/uL (0.90-5.00); Lymphocytes % (A) 46.4 %; MCHC 32.2 g/dL (32.0-37.0); MCV 86.7 FL (80.0-97.0); Mean Platelet Volume 11.5 FL (9.5-12.2); Monocytes # (A) 0.55 X 10*3/uL (0.20-1.00); Monocytes % (A) 9.7 %; NRBC Per 100 WBC 0 X 10*3/uL (0.00-0.01); Neutrophils # (A) 2.22 X 10*3/uL (1.80-7.70); Neutrophils % (A) 39.3 %; Platelet Count 239 X 10*3/uL (140-440); RBC 4.83 X 10*6/uL (4.10-5.20); RDW 13.4 % (11.5-14.5); WBC 5.65 X 10*3/uL (4.50-10.00)
[2024-07-21 10:57] LABS: BUN/Creat Ratio 18.22 Ratio (12.00-20.00); Blood Urea Nitrogen 16.4 mg/dL (9.0-27.0); Calcium 9.3 mg/dL (8.7-10.3); Carbon Dioxide 25.2 mmol/L (21.6-31.8); Chloride 105 mmol/L (96-109); Glucose 108 mg/dL (70-110); Potassium 3.9 mmol/L (3.5-5.5); Sodium 141 mmol/L (135-145)
[2024-07-21] MEDS ORDERED: PROPOFOL 10 MG/ML 20 ML VIAL IV ONE (12:09)
[2024-07-21] MEDS ORDERED: GLYCOPYRROLATE 0.2 MG/ML 2 ML VIAL ONE (12:09)
[2024-07-21] MEDS ORDERED: KETAMINE HCL IN 0.9 % NACL 50 MG/5 ML SYRINGE ONE (12:09)
[2024-07-21] MEDS ORDERED: MIDAZOLAM 2 MG/2 ML VIAL ONE (12:09)
[2024-07-21] MEDS: SODIUM CHLORIDE 0.9% 500 ML 500 ML IV ONE (12:09)
[2024-07-21] MEDS ORDERED: LIDOCAINE 1% INJ 10MG/ML (20 ML MDV) ONE (12:09)
[2024-07-21] MEDS: LIDOCAINE 2% INJ 20 MG/ML INTRATRACH ONE (12:20)
--- NOTE | 2024-07-21 13:54 | P.DS ---
Providers Date of admission: 07/20/24 03:54 Attending physician: Rosita Conde MD Consults: 07/20/24 03:50 Consult Physician Urgent Consulting Provider: Katalina Gross Consult Reason/Comments: Hemoptysis, history of bronchiectasis Do you want consulting provider notified?: Yes Primary care physician: Christine Romero Hospital Course: 58-year-old female with past medical history of paroxysmal atrial fibrillation on sotalol bronchiectasis and rheumatoid arthritis. She had presented to hospital with hemoptysis. She was given inhaled TXA by the ER which helped significant with her abscess. Chest CTA had revealed small areas of tree-in-bud nodular densities in the upper lobes with no evidence of PE. Viral respiratory panel was negative. She started on IV levofloxacin and she had a bronchoscopy with pulmonary on July 21. She was then discharged home. I have prescribed the patient levofloxacin and a Medrol Dosepak. She should hold her aspirin and leflunomide for now. Assessment: #) Hemoptysis, resolved. continue levofloxacin and medrol dosepak #) Paroxsymal atrial fibrillation. continue sotalol, hold asa 81 mg daily for now #) RA, hold leflunamide for now Patient Condition at Discharge: Stable Plan - Discharge Summary New Discharge Prescriptions: New Levofloxacin [Levaquin] 750 mg PO DAILY 6 Days #6 tab methylPREDNISolone [Medrol Dose Pack] 0 mg PO DIRECTED #1 packet Continue Sotalol [Betapace] 80 mg PO BID Discontinued Aspirin EC [Ecotrin Low Dose] 81 mg PO W/LUNCH Leflunomide 10 mg PO HS Discharge Medication List Sotalol [Betapace] 80 mg PO BID 12/04/22 [History] Levofloxacin [Levaquin] 750 mg PO DAILY 6 Days #6 tab 07/21/24 [Rx] methylPREDNISolone [Medrol Dose Pack] 0 mg PO DIRECTED #1 packet 07/21/24 [Rx] Follow up Appointment(s)/Referral(s): Katalina Gross MD [STAFF PHYSICIAN] - 1 Week Christine Romero MD [Primary Care Provider] - 1-2 days Discharge Disposition: HOME SELF-CARE
[2024-07-21 14:12] VITALS: BP 116/69; PULSE 66
--- NOTE | 2024-07-21 15:00 | P.PN ---
Subjective Progress Note Date: 07/21/24 This is a pleasant 58-year-old Arabic woman who has a history of atrial fibrillation currently on Betapace, rheumatoid arthritis maintained on Leflunomide diagnosed approximately 3 years ago. She had previously been on methotrexate. She also has a history of bronchiectasis diagnosed approximately 15 years ago while in [facility]. She has been here in the [place] and living with her daughter. 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 She has had bronchoscopy x 3. She was last on antibiotics in December 2023. She presented here to our emergency room early this morning with coughing up a clot then bright red blood approximately 2 tablespoons. She did receive tranexamic acid in the emergency department. She was initiated on Levaquin. Chest x-ray reveals bilateral medial lower lung opacities. CT angiogram ruled out pulmonary embolism. There is right middle lobe and lingular atelectasis/bronchiectasis. Small similar areas of tree-in-bud/nodular densities in the upper lobes bilaterally more so in the upper right lung. She is currently sitting up in bed. Awake and alert in no acute distress. Maintaining good O2 saturations in the 90s on room air. She has not had any further hemoptysis. White count 7.5. Hemoglobin 13.3. Platelets 216. D-dimer 0.66. INR 0.9. Sodium 140. Potassium 4.1. Bicarb 26. BUN 22. Creatinine 0.88. Glucose 118. Viral screen negative. She remains afebrile. Hemodynamically stable. The patient is seen today July 21, 2024 in follow-up on the regular medical floor. She is awake and alert in no acute distress. No further hemoptysis. The plan is for bronchoscopy with BAL today. She is maintaining good O2 saturations in the mid 90s on room air. She has been afebrile. Hemodynamically stable. White count 5.6. Hemoglobin 13.5. Platelets 239. Sodium 141. Potassium 3.9. Bicarb 25. BUN 16. Creatinine 0.9. Glucose 108. Procalcitonin was negative at 0.02. She is continued on Levaquin. Objective - Vital Signs Vital signs: Vital Signs Temp 97.6 F 07/21/24 06:16 Pulse 66 07/21/24 14:11 Resp 18 07/21/24 08:39 BP 116/69 12/06/24 14:11 Pulse Ox 95 07/21/24 13:41 FiO2 Intake & Output 07/20/24 07/21/24 07/21/24 18:59 06:59 18:59 Intake Total 478 200 Balance 478 200 Weight 74.843 kg Intake: IV 200 Oral 478 0 Other: Voiding Method Toilet Toilet # Voids 2 2 3 - Exam GENERAL EXAM: Alert, 58-year-old female, up ambulating in her room, on room air, in no apparent distress. HEAD: Normocephalic. EYES: Normal reaction of pupils, equal size. NOSE: Clear with pink turbinates. THROAT: No erythema or exudates. NECK: No masses, no JVD. CHEST: No chest wall deformity. LUNGS: Equal air entry with no crackles, wheeze, rhonchi or dullness. CVS: S1 and S2 normal with no audible murmur, regular rhythm. ABDOMEN: No hepatosplenomegaly, normal bowel sounds, no guarding or rigidity. SPINE: No scoliosis or deformity SKIN: No rashes CENTRAL NERVOUS SYSTEM: No focal deficits, tone is normal in all 4 extremities. EXTREMITIES: There is no peripheral edema. No clubbing, no cyanosis. Peripheral pulses are intact. - Labs CBC & Chem 7: 07/21/24 06:33 07/21/24 06:33 Assessment and Plan Assessment: Hemoptysis requiring tranexamic acid in the emergency department suspect secondary to bronchiectasis. Currently on Levaquin History of bronchiectasis for approximately 15 years with previous bronchoscopy x 3 in [facility]. Last antibiotics in December 2023 Rheumatoid arthritis for approximately 3 years, initially on methotrexate, currently on leflunomide History of atrial fibrillation, on Betapace, no anticoagulants Plan: The patient was seen and evaluated Labs and medications reviewed Stable and on room air No further hemoptysis Plan is for bronchoscopy with BAL today Possible discharge later this afternoon after her procedure She will follow-up with Dr. Gross in our office in 1 week for bronchial wash results This patient was seen independently by the pulmonary nurse practitioner addressing pulmonary issues I have personally seen and examined the patient, performed the documentation and the assessment and plan as written. Number of minutes spent on the visit: 24 Dictation was produced using [employer] dictation software. Please excuse any grammatical, word or spelling errors.
--- NOTE | 2024-07-21 22:10 | PCN ---
PROCEDURE NOTE PROCEDURES PERFORMED: Bronchoscopy and random bronchoalveolar lavage of multiple lobes. PREOPERATIVE DIAGNOSIS: Hemoptysis. POSTOPERATIVE DIAGNOSIS: Hemoptysis secondary to bronchiectasis. ANESTHESIA USED: IV conscious sedation. PROCEDURE IN DETAIL: The patient was placed in a supine position, O2 saturation was monitored via pulse oximetry. Blood pressure was intermittently monitored, cardiac rhythm was continuously monitored throughout the procedure. The patient was placed on a Ventimask, and after adequate IV conscious sedation, the bronchoscope was inserted through a bite block down to the area of the vocal cords, which were visualized and noted to be patent. Lidocaine applied over the vocal cords and thorough examination was done over the vocal cords, trachea, frank, right upper lobe, right middle lobe, right lower lobe, left upper lobe lingula and left lower lobe. There was no evidence of any active bleeding noted, however, there were multiple mucus and mucoid secretions, noted to be thick and completely occluding some of the segments of different lobes. Bronchoalveolar lavage was done of all the lobes including left upper lobe, which was significantly involved as well as the right middle lobe. All secretions were suctioned from the airways, there was no evidence of any significant bleeding and there was no active bleeding. The procedure was well tolerated. Fluid was sent for different diagnostic studies. No complications. MMODL / IJN: [id number] /
[2024-07-22 05:55] LABS: Appearance,BF Cloudy (Clear); RBC, Body Fluid 3713 /UL (0-2000)
[2024-07-24 09:31] LABS: Nucleated Cells, Body Fluid 550 /UL
== END 2024-07-21 15:10 | disposition home or self-care (01) ==
LOC: EC 23:11 → 6NMEDSUR 07-20 03:54
PROVIDERS: ADMIT Internal Medicine; ATTEND Internal Medicine
DX: R04.2 Hemoptysis (principal); J47.9 Bronchiectasis, uncomplicated; J98.11 Atelectasis; I48.0 Paroxysmal atrial fibrillation; M06.9 Rheumatoid arthritis, unspecified; Z79.82 Long term (current) use of aspirin; Z79.52 Long term (current) use of systemic steroids; Z79.899 Other long term (current) drug therapy; Z86.16 Personal history of COVID-19; Z88.6 Allergy status to analgesic agent
CPT/HCPCS: 99285; 36415; 94640; 93005; 87798 ×3; 87496; 87498; 87529; 85379; 80053; 80048; 89050; 83605; 84484; 85025 ×2; 85610; 85730; 87502; 87634; 87070; 87205; 87116; 87102; 87077; 87186; 87206; 84145; 87636; 87635; 71046; 71275; 31624; G0378 ×4; J2250; J2003 ×2; J1956 ×2; J2704; Q9967; J1596; 88108; 88305